=== PATIENT | male | born 1960 | race Caucasian/White ===

== ENCOUNTER 2017-07-07 21:50 | Inpatient (IN) | payer OTHER ==
[2017-07-07] MEDS ORDERED: Aspirin Low Dose CHEW TAB* 81 MG PO ONE (22:07)
[2017-07-07] MEDS ORDERED: NS 0.9% 1000 ML* 2,000 ML IV ONE (22:07)
[2017-07-07 22:39] LABS: Hematocrit 38 % (42-52); Hemoglobin 12.9 g/dl (14.0-18.0); Mean Corpuscular HGB Conc 34 g/dl (31-36); Mean Corpuscular Hemoglobin 32 pg (27-31); Mean Corpuscular Volume 93 fL (80-94); Mean Platelet Volume 8 um3 (7.4-10.4); Red Blood Count 4.06 10^6/ul (4.0-5.4); Red Cell Distribution Width 13 % (10.5-15); White Blood Count 6.4 10^3/ul (3.5-10.8)
[2017-07-07 22:56] LABS: BUN/Creatinine Ratio 20.6 (8-20); Calcium 9.1 mg/dL (8.6-10.3); EGFR African American 155.1 (>60); EGFR Non-African American 120.6 (>60); Globulin 2.9 g/dL (2-4); Potassium 3.8 mmol/L (3.5-5.0); Total Bilirubin 0.7 mg/dL (0.2-1.0); Total Protein 6.9 g/dL (6.4-8.9)
[2017-07-07 22:58] LABS: Troponin I 0.01 ng/mL (<0.04)
[2017-07-07] MEDS ORDERED: Ketorolac INJ* 30 MG/ML 1 ML VIAL IV PUSH ONE (23:41)
[2017-07-08] MEDS ORDERED: Acetaminophen TAB* 325 MG PO PRN (00:43)
[2017-07-08] MEDS ORDERED: Morphine INJ* 2 MG/ML 1 ML SYRINGE IV PRN (00:43)
[2017-07-08 02:51] LABS: Troponin I 0.01 ng/mL (<0.04)
--- NOTE | 2017-07-08 04:00 | ED ---
Grady Berger SooYoung, scribed for Tyler Banegas MD on 07/07/17 at 2158 . HPI Chest Pain - HPI Summary HPI Summary: A 57 y/o M inmate presents to ED with c/o intermittent CP onset two days ago, which has become constant today. Pain described as discomfort, squeezing, sharp. Associated sx: SOB, bilat pedal edema, bilat LE pain, LUE numbness, KERR onset about 5 days ago. Denies cough. Aggravating factors: exertion. Rest did not alleviate sx. Got 4 baby aspirin en route from EMS. No recent stress test. PMHx: mild IL approx 22 years ago, no stents. Non-smoker. Pills. No ETOH. No pacemaker. Positive FHx for cardiac dz. - History of Current Complaint Chief Complaint: EDChestPainROMI Time Seen by Provider: 07/07/17 21:57 Hx Obtained From: Patient Onset/Duration: Still Present Timing: Constant - today Current Severity: Mild Pain Intensity: 3 Pain Scale Used: 0-10 Numeric Character: Pressure/Squeezing, Sharp/Stabbing Aggravating Factor(s): Exertion Associated Signs and Symptoms: Positive: Headaches, Numbness - LUE, Shortness of Breath, Edema - bilat LE pain, Other: - pos: bilat UE pain. Negative: Cough - Allergy/Home Medications Allergies/Adverse Reactions: Allergies Allergy/AdvReac Type Severity Reaction Status Date / Time No Known Allergies Allergy Verified 07/07/17 22:02 Home Medications: Home Medications NK [No Home Medications Reported] 07/08/17 [History Confirmed 07/08/17] PMH/Surg Hx/FS Hx/Imm Hx Previously Healthy: No - sick sinus; Cardiovascular History: Reports: Hx Myocardial Infarction, Other Cardiovascular Problems/Disorders - mitrovalve prolapse Denies: Hx Pacemaker/ICD Infectious Disease History: Denies: Traveled Outside the [place] in Last 30 Days - Family History Known Family History: Positive: Cardiac Disease - multiple family members due to cardiac dz; sister 52, brother 54 - Social History Occupation: Unemployed - inmate Lives: [facility] facility Hx Substance Use: Yes Substance Use Comment - Amount & Last Used: pills Hx Tobacco Use: No Smoking Status (MU): Never Smoked Tobacco Review of Systems Positive: Chest Pain Positive: Shortness Of Breath. Negative: Cough Positive: Edema - bilat LE, Other - pos: bilat LE pain Positive: Headache, Numbness - LUE All Other Systems Reviewed And Are Negative: Yes Physical Exam - Summary Physical Exam Summary: The patient is well-nourished in no acute distress and in no acute pain. The skin is warm and diaphoretic and skin color reflects adequate perfusion. HEENT: The head is normocephalic and atraumatic. There is no facial droop. Face, tongue and neck are midline. The pupils are equal and reactive. The conjunctivae are clear and without drainage. Nares are patent and without drainage. Mouth reveals moist mucous membranes and the throat is without erythema and exudate. The external ears are intact. The ear canals are patent and without drainage. The tympanic membranes are intact. Neck is supple with full range of motion and non-tender. There are no carotid bruits. There is no neck vein distension. Respiratory: There is some reproducible chest pain. Lungs are clear to auscultation and breath sounds are symmetrical and equal. Cardiovascular: Heart is regular rate and rhythm. There is no murmur or rub auscultated. There is no peripheral edema and pulses are symmetrical and equal. Abdomen: The abdomen is soft, obese and non-tender. There are normal bowel sounds heard in all four quadrants and there is no organomegaly palpated. Musculoskeletal: There is no back pain noted. Extremities are non-tender with full range of motion. There is good capillary refill. There is no calf tenderness elicited. Bilateral pedal edema at ankles. Neurological: Patient is alert and oriented to person, place and time. The patient has symmetrical motor strength in all four extremities. Cranial nerves are grossly intact. Deep tendon reflexes are symmetrical and equal in all four extremities. Psychiatric: The patient has an appropriate affect and does not exhibit any anxiety or depression. Triage Information Reviewed: Yes Vital Signs On Initial Exam: Initial Vitals Temp Pulse Resp BP Pulse Ox 97.1 F 62 16 142/82 96 07/07/17 21:53 07/07/17 21:53 07/07/17 21:53 07/07/17 21:53 07/07/17 21:53 Vital Signs Reviewed: Yes Diagnostics - Vital Signs Vital Signs Temp Pulse Resp BP Pulse Ox 07/07/17 21:53 97.1 F 62 16 142/82 96 - Laboratory Lab Results: Lab Results 07/07/17 07/07/17 07/07/17 Range/Units 22:25 22:25 22:25 WBC 6.4 (3.5-10.8) 10^3/ul RBC 4.06 (4.0-5.4) 10^6/ul Hgb 12.9 L (14.0-18.0) g/dl Hct 38 L (42-52) % MCV 93 (80-94) fL MCH 32 H (27-31) pg MCHC 34 (31-36) g/dl RDW 13 (10.5-15) % Plt Count 208 (150-450) 10^3/ul MPV 8 (7.4-10.4) um3 Neut % (Auto) 38.4 (38-83) % Lymph % (Auto) 37.6 (25-47) % Ceiba % (Auto) 15.3 H (1-9) % Eos % (Auto) 7.7 H (0-6) % Baso % (Auto) 1.0 (0-2) % Absolute Neuts (auto) 2.5 (1.5-7.7) 10^3/ul Absolute Lymphs (auto) 2.4 (1.0-4.8) 10^3/ul Absolute Monos (auto) 1.0 H (0-0.8) 10^3/ul Absolute Eos (auto) 0.5 (0-0.6) 10^3/ul Absolute Basos (auto) 0.1 (0-0.2) 10^3/ul Absolute Nucleated RBC 0 10^3/ul Nucleated RBC % 0.1 INR (Anticoag Therapy) 0.99 (0.89-1.11) APTT 28.3 (26.0-36.3) seconds Sodium 137 (133-145) mmol/L Potassium 3.8 (3.5-5.0) mmol/L Chloride 107 (101-111) mmol/L Carbon Dioxide 26 (22-32) mmol/L Anion Gap 4 (2-11) mmol/L BUN 14 (6-24) mg/dL Creatinine 0.68 (0.67-1.17) mg/dL Est GFR ( Amer) 155.1 (>60) Est GFR (Non-Af Amer) 120.6 (>60) BUN/Creatinine Ratio 20.6 H (8-20) Glucose 117 H (70-100) mg/dL Lactic Acid (0.5-2.0) mmol/L Calcium 9.1 (8.6-10.3) mg/dL Total Bilirubin 0.70 (0.2-1.0) mg/dL AST 18 (13-39) U/L ALT 16 (7-52) U/L Alkaline Phosphatase 84 (34-104) U/L Troponin I 0.01 (<0.04) ng/mL B-Natriuretic Peptide ( - 100) pg/mL Total Protein 6.9 (6.4-8.9) g/dL Albumin 4.0 (3.2-5.2) g/dL Globulin 2.9 (2-4) g/dL Albumin/Globulin Ratio 1.4 (1-3) 07/07/17 07/07/17 Range/Units 22:25 22:25 WBC (3.5-10.8) 10^3/ul RBC (4.0-5.4) 10^6/ul Hgb (14.0-18.0) g/dl Hct (42-52) % MCV (80-94) fL MCH (27-31) pg MCHC (31-36) g/dl RDW (10.5-15) % Plt Count (150-450) 10^3/ul MPV (7.4-10.4) um3 Neut % (Auto) (38-83) % Lymph % (Auto) (25-47) % Ceiba % (Auto) (1-9) % Eos % (Auto) (0-6) % Baso % (Auto) (0-2) % Absolute Neuts (auto) (1.5-7.7) 10^3/ul Absolute Lymphs (auto) (1.0-4.8) 10^3/ul Absolute Monos (auto) (0-0.8) 10^3/ul Absolute Eos (auto) (0-0.6) 10^3/ul Absolute Basos (auto) (0-0.2) 10^3/ul Absolute Nucleated RBC 10^3/ul Nucleated RBC % INR (Anticoag Therapy) (0.89-1.11) APTT (26.0-36.3) seconds Sodium (133-145) mmol/L Potassium (3.5-5.0) mmol/L Chloride (101-111) mmol/L Carbon Dioxide (22-32) mmol/L Anion Gap (2-11) mmol/L BUN (6-24) mg/dL Creatinine (0.67-1.17) mg/dL Est GFR ( Amer) (>60) Est GFR (Non-Af Amer) (>60) BUN/Creatinine Ratio (8-20) Glucose (70-100) mg/dL Lactic Acid 0.6 (0.5-2.0) mmol/L Calcium (8.6-10.3) mg/dL Total Bilirubin (0.2-1.0) mg/dL AST (13-39) U/L ALT (7-52) U/L Alkaline Phosphatase (34-104) U/L Troponin I (<0.04) ng/mL B-Natriuretic Peptide 18 ( - 100) pg/mL Total Protein (6.4-8.9) g/dL Albumin (3.2-5.2) g/dL Globulin (2-4) g/dL Albumin/Globulin Ratio (1-3) Result Diagrams: 07/07/17 22:25 07/07/17 22:25 Lab Statement: Any lab studies that have been ordered have been reviewed, and results considered in the medical decision making process. - Radiology CXR Xray Interpretation: No Acute Changes - CXR reveal no PNA, no CHF, nml heart size, no pleural effusion, no PTX. Radiology Interpretation Completed By: ED Physician - CT HEAD CT Interpretation: No Acute Changes - IMPRESSION: Nml brain. No acute intracranial abnormality. No hemorrhage. No visible infarct or mass. CT Interpretation Completed By: Radiologist - EKG 6 Cardiac Rate: NL - 66bpm EKG Rhythm: Sinus Rhythm ST Segment: Normal - no STEMI EKG Interpretation: L axis, poor R wave progression, Q-waves in III and aVF Chest Pain Course/Dx - Course Course Of Treatment: Pt is a 57 y/o M inmate presenting with intermittent CP onset two days ago, which has become constant today. Pain described as discomfort, squeezing, sharp. Associated sx: SOB, bilat pedal edema, bilat LE pain, LUE numbness, KERR onset about 5 days ago. Denies cough. Aggravating factors : exertion. Rest did not alleviate sx. Got 4 baby aspirin en route from EMS. No recent stress test. PMHx: mild IL approx 22 years ago, no stents. Non-smoker. Pills. No ETOH. No pacemaker. Positive FHx for cardiac dz. Bloodwork is without significant abnormalities. EKG shows NSR with L axis, poor R wave progression, Q-waves in III and aVF, no STEMI. CXR reveals no active cardiopulmonary dz. - Chest Pain Differential Diagnosis/HQI/PQRI: Acute IL, Chest Wall, Pulmonary Edema - Diagnoses Provider Diagnoses: Chest pain - Provider Notifications Discussed Care Of Patient With: Ck Landeros - hospitalist Time Discussed With Above Provider: 23:38 Instructed by Provider To: Will See In ED - likely admit Discharge - Discharge Plan Condition: Stable Disposition: ADMITTED TO [facility] The documentation as recorded by the Grady montes SooYoung accurately reflects the service I personally performed and the decisions made by me, Tyler Banegas MD.
--- NOTE | 2017-07-08 07:11 | RAD ---
INDICATION: Chest pain. Pneumonia. COMPARISON: None TECHNIQUE: An AP portable view obtained at 2245 hours is submitted. FINDINGS: Bones/Soft Tissues: There are no acute bony findings. Cardiomediastinal: The cardiomediastinal silhouette is normal. Lungs: There are no infiltrates. Pleura: There are no pleural effusions. Other: None IMPRESSION: NO ACTIVE DISEASE.
[2017-07-08] MEDS: Aspirin EC Low Dose* 81 MG TAB.EC PO SCH (07:22)
--- NOTE | 2017-07-08 07:25 | RAD ---
INDICATION: Headaches COMPARISON: None TECHNIQUE: Noncontrast axial source images were acquired from the skull base to the vertex. FINDINGS: Ventricles/sulci: The ventricles and cisterns are normal in size and configuration for age. Brain parenchyma: There is no focal parenchymal finding, evidence of intracranial mass, or intracranial mass effect. Intracranial hemorrhage:None. Extra-axial spaces: There are no abnormal extra axial fluid collections or evidence of extra-axial mass. Calvarium: There is no calvarial fracture or other calvarial abnormality. Scalp: There is no evidence of scalp or extracalvarial soft tissue abnormality. Paranasal sinuses/mastoid: The caudal most images show bilateral ethmoid and left frontal sinus disease. There is soft tissue asymmetry anterior to left orbit which is likely related to positioning. Further evaluation of this sinuses/skull base can be made with CT imaging of the sinuses as indicated. Other: None. IMPRESSION: No acute intracranial findings. Sinusitis.
--- NOTE | 2017-07-08 08:41 | HP ---
ADMISSION HISTORY AND PHYSICAL: DATE OF ADMISSION: 07/07/17 CHIEF COMPLAINT: Chest pain. HISTORY OF PRESENT ILLNESS: Mr. Elias is a 57-year-old man with reported history of SD, who reports chest pain in the left anterior chest, radiating to the left arm. The pain is rated at 5/10 at the moment and has been up to 8/10 today. The pain actually began yesterday morning, 36 hours prior to admission, and waxed and waned and resolved. It is nonexertional. Today, in the morning, the pain returned at a stronger level, up to 8/10. The pain radiates to the neck and left arm, and is associated with nausea and dyspnea with exertion, but not dyspnea at rest. The patient denies any palpitations. He does report that he had a myocardial infarction at age 36 when he was incarcerated somewhere near [facility], in [facility], near [place], [place]. He states his last cardiac evaluation was in [place], [place], maybe 3 years ago , with echocardiogram and stress test. The patient, more recently, was living in [place] where he has family. However, he is now incarcerated at the [facility] for just this week, since Sunday. He states, at the drug screening program he is doing more walking and more standing than his baseline. At baseline he has neurocardiogenic syncope and sick sinus syndrome and he previously was treated with midodrine and atenolol. He is not currently receiving his medications. PAST MEDICAL HISTORY: Include mitral valve prolapse, sick sinus syndrome, neurocardiogenic syncope, myocardial infarction at age 36, depression, anxiety , and an unruptured brain hemangioma. PAST SURGICAL HISTORY: None. MEDICATIONS: 1. Remeron 1 tab p.o. q.h.s. 2. Zyrtec 10 mg p.o. q. day p.r.n. 3. Ibuprofen and Tylenol as needed. ALLERGIES: None. FAMILY HISTORY: Unknown to the patient. 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 He is single. He has 3 grown children. He never smoked, no alcohol, and his drug use is mainly abuse of benzodiazepines that are prescribed to him. REVIEW OF SYSTEMS: The patient denies any fever, weight loss or anorexia. The patient denies any cough or hemoptysis, but he does have shortness of breath with exertion. The patient does report peripheral edema in his ankles, which is new. The patient denies any vomiting, diarrhea or abdominal pain. Remainder of the 14- point review of systems are negative, other than mentioned in the HPI. PHYSICAL EXAMINATION GENERAL: He is alert, in no acute distress. VITAL SIGNS: Temperature is 36.2, pulse 69, respirations 15, blood pressure is 130/69, O2 sat is 93%. HEENT: Head is normocephalic, atraumatic. Sclerae are anicteric. Pupils are equal, round, and reactive to light and accommodation. Oropharynx is moist. No lesions. NECK: No JVD. No carotid bruits, no thyromegaly. LUNGS: Clear to auscultation and percussion bilaterally. HEART: Regular rate and rhythm, without murmurs or gallops. ABDOMEN: Soft, nontender, positive bowel sounds. No hepatosplenomegaly. EXTREMITIES: There is trace pitting edema in both lower extremities at the ankles. Dorsalis pedis pulses are 1+ bilaterally. NEUROLOGIC: Cranial nerves II through XII are intact. Motor strength is 5/5 throughout. Deep tendon reflexes are symmetric. LABORATORY DATA: Sodium 138, potassium 3.8, chloride 107, bicarb 26, BUN 14, creatinine 0.66, glucose 117, calcium 9.1, albumin 4.0. AST 18, ALT 16. Bilirubin 0.7. Troponin 0.01. BNP 18. INR 0.99. White count 6.4, hemoglobin 12.9, hematocrit 38%, platelets 208. EKG: Normal sinus rhythm, leftward axis, no ST elevations or depressions to suggest ischemia. Chest x-ray is negative for infiltrates or effusion. Head CT is negative for bleed or infarct. ASSESSMENT AND PLAN: A 57-year-old man with reported history of coronary artery disease, now presenting with atypical chest pain. The pain is atypical in the sense that it has been present for 1 to 2 days, it is nonexertional. So , at this point, differential would include anxiety, pericarditis, GERD or unstable angina. The patient has normal troponin after 12 hours of pain, so myocardial infarction is essentially ruled out. The patient will be admitted for observation, telemetry, to look for cardiac arrhythmias. He will have an echocardiogram to rule out progression of this valvular disease and pericarditis. He can have a stress test to rule out impending SD, cardiac ischemia. I will start him on aspirin a day and we can check his cholesterol in the morning. Blood pressure does not appear to require treatment. Code status is full. DVT prophylaxis will be with simply early ambulation. He is at low risk. [id number]/CPS #: [id number] MTDD
--- NOTE | 2017-07-08 11:45 | ECHO ---
Patient: FANTASMA DELATORRE [id number] [facility] Rec#: [id number] : 1960 Date: 07/08/2017 Age: 57y Height: 172.72 cm / 68.0 in Weight: 85.73 kg / 188.9 lbs Sex: M BSA: 2 Room#: 453 Admit Date#: 07/07/2017 Type: Inpatient Referring: Ck Landeros MD Reading: Radha Romero MD [employer] Flight Mechanic: Christina Tomlinson [facility] Transthoracic Echocardiogram Indication: CP BP: 125/80 HR: 121 Rhythm: Tachycardia Findings History: SOB,pedal edema, old OH,+ family history. Technical Comments: The study quality is good. Completed at 0955. Left Ventricle: The left ventricular chamber size is decreased. Septal wall hypertrophy is observed. Global left ventricular wall motion and contractility are within normal limits. There is normal left ventricular systolic function. The estimated ejection fraction is 60-65%. Abnormal left ventricular diastolic function is observed. Left Atrium: The left atrium is normal in size. Right Ventricle: The right ventricular cavity size is normal. The right ventricular global systolic function is normal. Right Atrium: The right atrial cavity size is normal. Aortic Valve: The aortic valve is trileaflet. There is no evidence of aortic regurgitation. There is no evidence of aortic stenosis. Mitral Valve: The mitral valve leaflets are mildly thickened. There is trace to mild mitral regurgitation. There is no evidence of mitral stenosis. Tricuspid Valve: The tricuspid valve leaflets are normal. There is trace to mild tricuspid regurgitation. There is evidence that pulmonary hypertension may be underestimated. There is no tricuspid stenosis. Pulmonic Valve: The pulmonic valve appears normal. There is no evidence of pulmonic regurgitation. There is no pulmonic stenosis. Pericardium: The pericardium appears normal. Aorta: There is no dilatation of the ascending aorta. There is no dilatation of the aortic arch. There is no dilation of the aortic root. Pulmonary Artery: The main pulmonary artery appears normal. Venous: The venous system is not well visualized. Conclusions The left ventricular chamber size is decreased. Global left ventricular wall motion and contractility are within normal limits. The estimated ejection fraction is 60-65%. Abnormal left ventricular diastolic function is observed. The right ventricular global systolic function is normal. All valves appear structurally normal with good excursion. There is trace to mild mitral regurgitation. There is trace to mild tricuspid regurgitation. No prior echo to compare. Measurements Name Value Normal Range RVIDd (AP) 2D 3.4 cm (0.9 - 2.6) RVDdMajor (2D) 3.3 cm (2.2 - 4.4) RAd ISD 4CH 5 cm (3.4 - 4.9) RA (A4C)W 3.5 cm (2.9 - 4.6) IVSd (2D) 1.2 cm (0.6 - 1) LVPWd (2D) 1 cm (0.6 - 1) LVIDd (2D) 3.3 cm (3.6 - 5.4) LVIDs (2D) 1.8 cm - LV FS (2D) 45 % (25 - 45) Aortic Annulus 2.2 cm (1.4 - 2.6) Ao root diameter (2D) 3.5 cm (2.1 - 3.5) Ascending Ao 3.4 cm (2.1 - 3.4) Aortic arch 3 cm (1.8 - 3.4) LA dimension (AP) 2D 3.4 cm (2.3 - 3.8) LAd ISD 4CH 5.1 cm (2.9 - 5.3) LA ISD 4CH W 3.6 cm (2.5 - 4.5) Name Value Normal Range LA ESV SP 4CH (A/L) 55 ml - LA ESV SP 2CH (A/L) 58 ml - LA ESV BP (A/L) 59 ml - LA ESV BP (A/L) index 29.39 ml/m2 - LA ESV SP 4CH (MOD) 50 ml - LA ESV SP 2CH (MOD) 54 ml - Name Value Normal Range MV E-wave Vmax 0.6 m/sec - MV deceleration time 238 msec - MV A-wave Vmax 0.5 m/sec - MV E:A ratio 1.16 ratio - LV septal e' Vmax 0.07 m/sec - LV lateral e' Vmax 0.12 m/sec - LV E:e' septal ratio 8.57 ratio - LV E:e' lateral ratio 5 ratio - Name Value Normal Range AV Vmax 1.1 m/sec - AV VTI 26.6 cm - AV peak gradient 4.75 mmHg - AV mean gradient 2.77 mmHg - LVOT Vmax 0.9 m/sec - LVOT VTI 20.2 cm - LVOT peak gradient 3.09 mmHg - LVOT mean gradient 1.26 mmHg - Name Value Normal Range TR Vmax 2.5 m/sec - TR peak gradient 25 mmHg - RAP 8 mmHg - RVSP 33 mmHg - Name Value Normal Range PV Vmax 0.8 m/sec - PV peak gradient 2.76 mmHg -
--- NOTE | 2017-07-08 12:52 | PN ---
Subjective Date of Service: 07/08/17 Interval History: Mr. Elias reports that he has had about 4 episodes of sharp chest pain in the center of his chest. He reports left arm numbness and tingling. He also complains of a severe headache that has been ongoing for the past 5 days and unrelieved by tylenol or ibuprofen. He further complains of pain in his ankles with swelling to his right ankle. He denies SOB, nausea, or abdominal pain. Objective Active Medications: Acetaminophen (Tylenol Tab*) 650 mg PO Q4H PRN Aspirin (Aspirin Ec Low Dose*) 81 mg PO DAILY AMNA Morphine Sulfate (Morphine Inj (Syringe)*) 2 mg IV Q2H PRN Vital Signs 07/08/17 07/08/17 07/08/17 00:13 00:45 00:51 Temperature 97.6 F 97.3 F Pulse Rate 56 69 Respiratory 16 18 15 Rate Blood Pressure 126/77 130/69 (mmHg) O2 Sat by Pulse 97 Oximetry 07/08/17 07/08/17 07/08/17 03:58 07:39 11:06 Temperature 97.9 F 97.8 F 98.5 F Pulse Rate 57 59 61 Respiratory 16 18 18 Rate Blood Pressure 125/80 121/78 97/61 (mmHg) O2 Sat by Pulse 97 95 95 Oximetry Oxygen Devices in Use Now: None Appearance: Male lying in bed in NAD Eyes: No Scleral Icterus Ears/Nose/Mouth/Throat: NL Teeth, Lips, Gums Neck: NL Appearance and Movements; NL JVP Respiratory: Symmetrical Chest Expansion and Respiratory Effort, Clear to Auscultation Cardiovascular: NL Sounds; No Murmurs; No JVD, No Edema Abdominal: NL Sounds; No Tenderness; No Distention Lymphatic: No Cervical Adenopathy Extremities: No Edema Skin: No Rash or Ulcers Neurological: Alert and Oriented x 3, NL Muscle Strength and Tone Nutrition: Taking PO's Result Diagrams: 07/07/17 22:25 07/07/17 22:25 Additional Lab and Data: Lab Results 07/07/17 07/07/17 07/07/17 Range/Units 22:25 22:25 22:25 WBC 6.4 (3.5-10.8) 10^3/ul RBC 4.06 (4.0-5.4) 10^6/ul Hgb 12.9 L (14.0-18.0) g/dl Hct 38 L (42-52) % MCV 93 (80-94) fL MCH 32 H (27-31) pg MCHC 34 (31-36) g/dl RDW 13 (10.5-15) % Plt Count 208 (150-450) 10^3/ul MPV 8 (7.4-10.4) um3 Neut % (Auto) 38.4 (38-83) % Lymph % (Auto) 37.6 (25-47) % [place] % (Auto) 15.3 H (1-9) % Eos % (Auto) 7.7 H (0-6) % Baso % (Auto) 1.0 (0-2) % Absolute Neuts (auto) 2.5 (1.5-7.7) 10^3/ul Absolute Lymphs (auto) 2.4 (1.0-4.8) 10^3/ul Absolute Monos (auto) 1.0 H (0-0.8) 10^3/ul Absolute Eos (auto) 0.5 (0-0.6) 10^3/ul Absolute Basos (auto) 0.1 (0-0.2) 10^3/ul Absolute Nucleated RBC 0 10^3/ul Nucleated RBC % 0.1 INR (Anticoag Therapy) 0.99 (0.89-1.11) APTT 28.3 (26.0-36.3) seconds Sodium 137 (133-145) mmol/L Potassium 3.8 (3.5-5.0) mmol/L Chloride 107 (101-111) mmol/L Carbon Dioxide 26 (22-32) mmol/L Anion Gap 4 (2-11) mmol/L BUN 14 (6-24) mg/dL Creatinine 0.68 (0.67-1.17) mg/dL Est GFR ( Amer) 155.1 (>60) Est GFR (Non-Af Amer) 120.6 (>60) BUN/Creatinine Ratio 20.6 H (8-20) Glucose 117 H (70-100) mg/dL Lactic Acid (0.5-2.0) mmol/L Calcium 9.1 (8.6-10.3) mg/dL Total Bilirubin 0.70 (0.2-1.0) mg/dL AST 18 (13-39) U/L ALT 16 (7-52) U/L Alkaline Phosphatase 84 (34-104) U/L Troponin I 0.01 (<0.04) ng/mL B-Natriuretic Peptide ( - 100) pg/mL Total Protein 6.9 (6.4-8.9) g/dL Albumin 4.0 (3.2-5.2) g/dL Globulin 2.9 (2-4) g/dL Albumin/Globulin Ratio 1.4 (1-3) 07/07/17 07/07/17 Range/Units 22:25 22:25 WBC (3.5-10.8) 10^3/ul RBC (4.0-5.4) 10^6/ul Hgb (14.0-18.0) g/dl Hct (42-52) % MCV (80-94) fL MCH (27-31) pg MCHC (31-36) g/dl RDW (10.5-15) % Plt Count (150-450) 10^3/ul MPV (7.4-10.4) um3 Neut % (Auto) (38-83) % Lymph % (Auto) (25-47) % [place] % (Auto) (1-9) % Eos % (Auto) (0-6) % Baso % (Auto) (0-2) % Absolute Neuts (auto) (1.5-7.7) 10^3/ul Absolute Lymphs (auto) (1.0-4.8) 10^3/ul Absolute Monos (auto) (0-0.8) 10^3/ul Absolute Eos (auto) (0-0.6) 10^3/ul Absolute Basos (auto) (0-0.2) 10^3/ul Absolute Nucleated RBC 10^3/ul Nucleated RBC % INR (Anticoag Therapy) (0.89-1.11) APTT (26.0-36.3) seconds Sodium (133-145) mmol/L Potassium (3.5-5.0) mmol/L Chloride (101-111) mmol/L Carbon Dioxide (22-32) mmol/L Anion Gap (2-11) mmol/L BUN (6-24) mg/dL Creatinine (0.67-1.17) mg/dL Est GFR ( Amer) (>60) Est GFR (Non-Af Amer) (>60) BUN/Creatinine Ratio (8-20) Glucose (70-100) mg/dL Lactic Acid 0.6 (0.5-2.0) mmol/L Calcium (8.6-10.3) mg/dL Total Bilirubin (0.2-1.0) mg/dL AST (13-39) U/L ALT (7-52) U/L Alkaline Phosphatase (34-104) U/L Troponin I (<0.04) ng/mL B-Natriuretic Peptide 18 ( - 100) pg/mL Total Protein (6.4-8.9) g/dL Albumin (3.2-5.2) g/dL Globulin (2-4) g/dL Albumin/Globulin Ratio (1-3) Assess/Plan/Problems-Billing Assessment: Mr. Elias is a 57 yo male with a PMH of ? ID at age 38, neurocardiogenic syncope and sick sinus syndrome who was admitted on 07/08/17 with chest pain radiating into his left arm. - Patient Problems (1) Chest pain Comment: - Trops negative. EKG without evidence of ischemia. - Echo without wall motion or valvular abnormalities. - Stress test pending for Sunday. - Continue asprin. (2) Headache Comment: - With left arm numbness and tingling. - Patient denies history of headaches like this but states that he has a distant history of migraines. - CT brain negative on arrival. Plan for MRI brain to rule out CVA given associated neuro symptoms and paucity of migraine history. - Neuro checks q2h. - Continue aspirin. Check lipid profile and HgbA1c. (3) DVT prophylaxis Comment: - Early mobility, low risk. (4) Full code status Status and Disposition: Switch from OBV to inpatient with need for additional night in the hospital for urgent stress testing on Sunday. Anticipate return to [facility] when medically stable.
[2017-07-08] MEDS: Ibuprofen TAB* 600 MG PO PRN ×2 (14:30→23:06)
[2017-07-08 14:45] LABS: HDL Cholesterol 31.1 mg/dL
[2017-07-09] MEDS: Aspirin EC Low Dose* 81 MG TAB.EC PO SCH (08:30)
--- NOTE | 2017-07-09 11:41 | RAD ---
HISTORY: MRI clearance. COMPARISON: None. FINDINGS: Frontal and lateral views of the orbits. There is no radiopaque foreign body attributable to the orbits. The orbital rims are intact. The sinuses are clear. The zygomatic arches are normal. IMPRESSION: No radiopaque foreign body attributable to the orbits.
--- NOTE | 2017-07-09 13:23 | RAD ---
HISTORY: Left hand, neck and face numbness COMPARISONS: CT of the brain July 07, 2017 TECHNIQUE: The following sequences were obtained of the head: Sagittal T1-weighted images, axial T2-weighted images, axial FLAIR images, axial susceptibility weighted images, axial T1-weighted images. Additionally, axial diffusion-weighted images were obtained with calculated apparent diffusion coefficients.. FINDINGS: HEMORRHAGE/INFARCT: There is no hemorrhage or acute infarct. MASSES/SHIFT: There is no mass or shift. EXTRA-AXIAL SPACES/MENINGES: There are no extra-axial fluid collections. SULCI AND VENTRICLES: The sulci and ventricles are normal in size and position for the patient's stated age. CEREBRUM: There is very mild scattered periventricular and subcortical white matter T2 hyperintensity. There is no corresponding abnormal signal on the diffusion-weighted imaging to indicate acute focal or territorial infarction. The norman-white matter differentiation is otherwise well preserved. BRAINSTEM: There are no focal parenchymal abnormalities. CEREBELLUM: There are no focal parenchymal abnormalities. The cerebellar tonsils are normal in size and position. SELLA: The sella is normal. PINEAL: The pineal region is clear. CP ANGLE/TEMPORAL BONES: The labyrinthine structures are grossly normal. VESSELS: Normal flow-voids are noted within the visualized vertebral vasculature. DIFFUSION ABNORMALITIES: There are no diffusion abnormalities. PARANASAL SINUSES/MASTOIDS: There is moderate mucosal thickening of the bilateral maxillary sinuses, an inspissated secretion in the sphenoid sinus, frothy secretions in the left frontal sinus and very mild mucosal thickening of the ethmoid air cells. ORBITS: The orbits are unremarkable. BONES AND SOFT TISSUE: No bone or soft tissue abnormalities are noted. IMPRESSION: 1. MRI FINDINGS ARE COMPATIBLE WITH VERY MILD MICROVASCULAR DISEASE WITHOUT EVIDENCE OF FOCAL OR TERRITORIAL INFARCTION. 2. PARANASAL SINUSITIS CORRESPONDING TO FINDINGS ON THE PRIOR CT OF THE BRAIN.
--- NOTE | 2017-07-09 13:54 | PN ---
Subjective Date of Service: 07/09/17 Interval History: Mr. Elias denies complaint and is eager for discharge. Objective Active Medications: Acetaminophen (Tylenol Tab*) 650 mg PO Q4H PRN Aspirin (Aspirin Ec Low Dose*) 81 mg PO DAILY AMNA Ibuprofen (Motrin Tab*) 600 mg PO Q6H PRN Vital Signs 07/08/17 07/08/17 07/08/17 15:55 19:38 20:00 Temperature 97.7 F 97.5 F Pulse Rate 71 65 Respiratory 16 16 16 Rate Blood Pressure 125/78 103/69 (mmHg) O2 Sat by Pulse 95 96 Oximetry 07/09/17 07/09/17 07/09/17 00:12 04:05 07:16 Temperature 98.1 F 98.4 F 97.8 F Pulse Rate 67 57 62 Respiratory 16 16 16 Rate Blood Pressure 120/78 103/62 118/73 (mmHg) O2 Sat by Pulse 96 96 98 Oximetry 07/09/17 08:00 Temperature Pulse Rate Respiratory 16 Rate Blood Pressure (mmHg) O2 Sat by Pulse Oximetry Oxygen Devices in Use Now: None Appearance: Male lying in bed in NAD Eyes: No Scleral Icterus Ears/Nose/Mouth/Throat: Mucous Membranes Moist Neck: NL Appearance and Movements; NL JVP Respiratory: Symmetrical Chest Expansion and Respiratory Effort, Clear to Auscultation Cardiovascular: NL Sounds; No Murmurs; No JVD, No Edema Abdominal: NL Sounds; No Tenderness; No Distention Lymphatic: No Cervical Adenopathy Extremities: No Edema Skin: No Rash or Ulcers Neurological: Alert and Oriented x 3, NL Muscle Strength and Tone Nutrition: Taking PO's Result Diagrams: 07/07/17 22:25 07/07/17 22:25 Additional Lab and Data: Lab Results 07/07/17 07/07/17 07/07/17 Range/Units 22:25 22:25 22:25 WBC 6.4 (3.5-10.8) 10^3/ul RBC 4.06 (4.0-5.4) 10^6/ul Hgb 12.9 L (14.0-18.0) g/dl Hct 38 L (42-52) % MCV 93 (80-94) fL MCH 32 H (27-31) pg MCHC 34 (31-36) g/dl RDW 13 (10.5-15) % Plt Count 208 (150-450) 10^3/ul MPV 8 (7.4-10.4) um3 Neut % (Auto) 38.4 (38-83) % Lymph % (Auto) 37.6 (25-47) % [place] % (Auto) 15.3 H (1-9) % Eos % (Auto) 7.7 H (0-6) % Baso % (Auto) 1.0 (0-2) % Absolute Neuts (auto) 2.5 (1.5-7.7) 10^3/ul Absolute Lymphs (auto) 2.4 (1.0-4.8) 10^3/ul Absolute Monos (auto) 1.0 H (0-0.8) 10^3/ul Absolute Eos (auto) 0.5 (0-0.6) 10^3/ul Absolute Basos (auto) 0.1 (0-0.2) 10^3/ul Absolute Nucleated RBC 0 10^3/ul Nucleated RBC % 0.1 INR (Anticoag Therapy) 0.99 (0.89-1.11) APTT 28.3 (26.0-36.3) seconds Sodium 137 (133-145) mmol/L Potassium 3.8 (3.5-5.0) mmol/L Chloride 107 (101-111) mmol/L Carbon Dioxide 26 (22-32) mmol/L Anion Gap 4 (2-11) mmol/L BUN 14 (6-24) mg/dL Creatinine 0.68 (0.67-1.17) mg/dL Est GFR ( Amer) 155.1 (>60) Est GFR (Non-Af Amer) 120.6 (>60) BUN/Creatinine Ratio 20.6 H (8-20) Glucose 117 H (70-100) mg/dL Lactic Acid (0.5-2.0) mmol/L Calcium 9.1 (8.6-10.3) mg/dL Total Bilirubin 0.70 (0.2-1.0) mg/dL AST 18 (13-39) U/L ALT 16 (7-52) U/L Alkaline Phosphatase 84 (34-104) U/L Troponin I 0.01 (<0.04) ng/mL B-Natriuretic Peptide ( - 100) pg/mL Total Protein 6.9 (6.4-8.9) g/dL Albumin 4.0 (3.2-5.2) g/dL Globulin 2.9 (2-4) g/dL Albumin/Globulin Ratio 1.4 (1-3) 07/07/17 07/07/17 Range/Units 22:25 22:25 WBC (3.5-10.8) 10^3/ul RBC (4.0-5.4) 10^6/ul Hgb (14.0-18.0) g/dl Hct (42-52) % MCV (80-94) fL MCH (27-31) pg MCHC (31-36) g/dl RDW (10.5-15) % Plt Count (150-450) 10^3/ul MPV (7.4-10.4) um3 Neut % (Auto) (38-83) % Lymph % (Auto) (25-47) % [place] % (Auto) (1-9) % Eos % (Auto) (0-6) % Baso % (Auto) (0-2) % Absolute Neuts (auto) (1.5-7.7) 10^3/ul Absolute Lymphs (auto) (1.0-4.8) 10^3/ul Absolute Monos (auto) (0-0.8) 10^3/ul Absolute Eos (auto) (0-0.6) 10^3/ul Absolute Basos (auto) (0-0.2) 10^3/ul Absolute Nucleated RBC 10^3/ul Nucleated RBC % INR (Anticoag Therapy) (0.89-1.11) APTT (26.0-36.3) seconds Sodium (133-145) mmol/L Potassium (3.5-5.0) mmol/L Chloride (101-111) mmol/L Carbon Dioxide (22-32) mmol/L Anion Gap (2-11) mmol/L BUN (6-24) mg/dL Creatinine (0.67-1.17) mg/dL Est GFR ( Amer) (>60) Est GFR (Non-Af Amer) (>60) BUN/Creatinine Ratio (8-20) Glucose (70-100) mg/dL Lactic Acid 0.6 (0.5-2.0) mmol/L Calcium (8.6-10.3) mg/dL Total Bilirubin (0.2-1.0) mg/dL AST (13-39) U/L ALT (7-52) U/L Alkaline Phosphatase (34-104) U/L Troponin I (<0.04) ng/mL B-Natriuretic Peptide 18 ( - 100) pg/mL Total Protein (6.4-8.9) g/dL Albumin (3.2-5.2) g/dL Globulin (2-4) g/dL Albumin/Globulin Ratio (1-3) Assess/Plan/Problems-Billing Assessment: Mr. Elias is a 57 yo male with a PMH of ? CA at age 38, neurocardiogenic syncope and sick sinus syndrome who was admitted on 07/08/17 with chest pain radiating into his left arm. - Patient Problems (1) Chest pain Comment: - Trops negative. EKG without evidence of ischemia. - Echo without wall motion or valvular abnormalities. - Stress test negative. (2) Headache Comment: - With left arm numbness and tingling. - CT brain and MRI brain negative. - Suspect secondary to migraine or sinusitis. (3) DVT prophylaxis Comment: - Early mobility, low risk. (4) Full code status Status and Disposition: Discharge.
[2017-07-09 17:15] VITALS: BP 122/73
--- NOTE | 2017-07-10 03:00 | DS ---
CC: Providers at [facility] * HOSPITAL MEDICINE DISCHARGE SUMMARY: DATE OF ADMISSION: 07/08/17 DATE OF DISCHARGE: 07/09/17 ATTENDING PHYSICIAN: Dr. Presley Elena * (dictation provided by Renetta Ellison NP). PRIMARY DIAGNOSES: 1. Chest pain. 2. Headache. 3. Left arm numbness. SECONDARY DIAGNOSES: 1. Reported history of mitral valve prolapse. 2. Sick sinus syndrome. 3. Near cardiogenic syncope. 4. History of myocardial infarction at 36. 5. Depression. 6. Anxiety. 7. Brain hemangioma. MEDICATIONS: At the time of discharge are unchanged. 1. Remeron 1 tab p.o. q.h.s. 2. Zyrtec 10 mg p.o. daily p.r.n. 3. Ibuprofen as needed. 4. Tylenol as needed. HOSPITAL COURSE: Mr. Elias is a 57-year-old resident of [facility] who presented to the hospital on 07/07/17 with concern for chest pain. Please see the dictated history and physical from Dr. Landeros for complete details. In brief, the patient complained of chest pain. The patient had a troponin, which was 0.01, and EKG which showed no evidence of ischemia. Mr. Elias placed on observation in the hospital. He had 2 repeat troponins, both of which were negative. He went on for transthoracic echocardiogram, which showed no evidence of wall motion abnormalities or valvular abnormalities and intact ejection fraction. Later in the day on 07/08/17, Mr. Elias was having multiple complaints including severe headache which he stated had been ongoing for 5 days and left- sided numbness in his arm. He denied history of similiar symptoms or migraine. He also complained of pain and swelling in his ankles and feet. Though he did have a negative CT brain on arrival, he went on for an MRI of the brain to rule out CVA given his complaint of headache and possible left arm deficit. The MRI brain was also negative. Mr. Elias is doing well. He is asymptomatic without headache, chest pain. He is eager for discharge. DISPOSITION: To [facility]. ACTIVITY: As tolerated. FOLLOWUP PLANS: Please follow up with physicians at [facility] regarding any ongoing symptoms, but please return to the emergency room with any further chest pain or other concerns. TIME SPENT: Approximately 60 minutes were spent in the discharge of this patient, more than half the time spent with the patient at the bedside reviewing the events leading up to this hospitalization, performing the physical examination, and reviewing my plan of care. RENETTA ELLISON NP [id number]/[facility] #: [id number] FIDENCIO
== END 2017-07-09 18:04 | disposition home or self-care (01) | DRG 198 ==
LOC: ED 21:50 → MEDTELE 23:56 → EEVIPCON 23:56 → OBSVTOIN 07-08 12:50
PROVIDERS: ADMIT Internal Medicine; ATTEND Internal Medicine
DX: R07.9 Chest pain, unspecified (principal); I25.2 Old myocardial infarction; I49.5 Sick sinus syndrome; R51 Headache; I25.10 Atherosclerotic heart disease of native coronary artery without angina pectoris; R20.0 Anesthesia of skin; F32.9 Major depressive disorder, single episode, unspecified; F41.9 Anxiety disorder, unspecified; D18.09 Hemangioma of other sites; Z79.1 Long term (current) use of non-steroidal anti-inflammatories (NSAID); Z79.899 Other long term (current) drug therapy
CPT/HCPCS: 36415; 70030; 70450; 70551; 71010; 80053; 80061; 83036; 83605; 83880; 84484; 85025; 85610; 85730; 93005; 93306; A9270-GY; J1885